=== PATIENT | female | born 1955 | race Caucasian/White ===

== ENCOUNTER → 2024-02-22 09:28 | Outpatient (REF) | payer MEDICARE, OTHER, SELFPAY ==
[2024-02-22 10:07] LABS: Hematocrit 40.9 % (37.0-47.0); Hemoglobin 13.4 g/dL (12.0-16.0); Mean Corp Hgb Conc. 32.8 g/dL (33.0-37.0); Mean Corpuscular Hgb 30.5 pg (27.0-31.0); Mean Platelet Volume 10.4 fL (7.4-10.4); Platelet Count 277 10^3/uL (130-400); Red Cell Dist. Width 13.2 % (11.5-14.5)
[2024-02-22 10:26] LABS: Blood Urea Nitrogen 25 mg/dl (7-17); Calcium 9.7 mg/dl (8.4-10.2); Carbon Dioxide 28 mmol/L (22-30); Chloride 103 mmol/L (98-107); Glucose 89 mg/dl (70-99); Potassium 4.5 mmol/L (3.5-5.1); Sodium 135 mmol/L (135-145); eGFR > 60.00
== END ==
LOC: SDSPAT 09:28
PROVIDERS: ATTENDING PHYSICIAN Obstetrics & Gynecology; FAMILY PHYSICIAN Family Medicine Adult Medicine; OTHER PHYSICIAN Internal Medicine Cardiovascular Disease
DX: Z01.818 Encounter for other preprocedural examination (principal)
CPT/HCPCS: 36415; 80048; 85027; 93005

== ENCOUNTER 2024-02-28 06:13 | Day surgery (SDC) | payer MEDICARE, OTHER, SELFPAY ==
[2024-02-22 09:45] VITALS: BMI 24.3
[2024-02-28] VITALS (13 sets, daily range): BP systolic 95–120; BP diastolic 54–93; BMI 24.3
[2024-02-28] MEDS: Pyridium 200 MG PO (06:52)
[2024-02-28] MEDS: NORMOSOL-R 1000 IV ×2 (07:06→08:49)
[2024-02-28] MEDS: TYLENOL 1000 MG PO (07:13)
[2024-02-28] MEDS: SUBLIMAZE 25 MCG IV ×2 (08:44→08:56)
[2024-02-28] MEDS: SUBLIMAZE 50 MCG IV (09:17)
[2024-02-28] MEDS: DILAUDID 0.5 MG IV (09:31)
[2024-02-28] MEDS: ROXICODONE 5 MG PO (11:31)
== END 2024-02-28 12:05 | disposition home or self-care (01) ==
LOC: SDS 06:13
PROVIDERS: ATTENDING PHYSICIAN Obstetrics & Gynecology; FAMILY PHYSICIAN Family Medicine Adult Medicine
DX: N39.3 Stress incontinence (female) (male) (principal); N36.41 Hypermobility of urethra
CPT/HCPCS: 57288; C1771

== ENCOUNTER → 2024-04-18 08:45 | Outpatient (REF) | payer MEDICARE, OTHER, SELFPAY | LOC: HWRAD 08:45 | PROVIDERS: ATTENDING PHYSICIAN Internal Medicine; FAMILY PHYSICIAN Family Medicine Adult Medicine | DX: M81.0 Age-related osteoporosis without current pathological fracture (principal) | CPT/HCPCS: 77080 ==

== ENCOUNTER 2024-05-02 11:59 | Emergency (ER) | payer MEDICARE, OTHER, SELFPAY ==
[2024-05-02 12:03] VITALS: BP 112/61
--- NOTE | 2024-05-02 12:29 | ED.GENMED ---
History of Present Illness
General
Chief Complaint: Fainting/Passed Out
Source: patient
Exam Limitations: none
Time Seen by Provider: 05/02/24 12:15
Nursing documentation reviewed up to this point in time: agreed with
Travel History
Have you had any contact with someone who has COVID-19?: No
Do you have any symptoms of coronavirus? Fever > 100 degrees, chills, cough, shortness of breath, sore throat, loss of taste or smell, muscle aches, or headache?: No
History of Present Illness
History of Present Illness:
This is a 68 y/o female with a pmh of hyperlipidemia, low blood pressure, anxiety, presenting emergency department today with concerns of light headedness, dizziness, near syncope while obtaining blood work this morning. Patient states that she was
going for routine fasting blood work this morning ordered by her primary care doctor when she started to feel dizzy and light headed and felt that she was going to syncopize. Her lab facility called [facility]. Patient states that she did not fall or hit
her head. Patient takes no blood thinners. Patient states that this always happens when she goes to get blood work. Patient expresses that she usually does well with blood work but if they start to have trouble finding a vein, she will get very
light headed and often syncopize with her fear of needles. Patient states that she feels now well now and her dizziness largely subsided but did become symptomatic again with IV placement here. Patient denies any changes to her vision, chest pain,
shortness of breath, lower extremity swelling, palpitations.
Past History
Past History
ED Past Medical History: Other
ED Past Surgical History: Appendectomy and Gynecological
Patient has exhibited threatening behavior?: No
Social History
Tobacco: Non-smoker
Alcohol: Occasional
Personal:
Living: with family
Review of Systems
Review of Systems
All Other Systems: ROS reviewed and negative except as documented in HPI and ROS
Phy Exam
Physical Exam
Physical Exam:
General: Patient is well appearing and in no acute distress; non-toxic
Skin: Warm and dry, no rashes or lesions
Head: Normocephalic, atraumatic
Eyes: Sclera non-icteric. EOMs intact. PERRLA.
Cardiac: Regular rate and rhythm, no murmurs.
Peripheral Vascular: No lower extremity swelling or edema.
Pulm: Normal respiratory effort, no wheezes, rales, or rhonchi
Abdomen: No abdominal tenderness to palpation
Neuro: CN II-XII intact, no focal neurologic deficits. Normal gait. Normal finger to nose, heel to gao testing.
Psychiatric: Appropriate mood and affect.
Course
Orders/Labs/Results
Orders:
Orders
05/02/24 12:06
ECG [Electrocardiogram (*1)] Urgent
Reason for Study: Syncope
EKG- Treatment ONCE
05/02/24 13:08
Bedside Glucose- Treatment ONCE
05/02/24 14:11
Orthostatic VS- Treatment ONCE
05/02/24 13:11
05/02/24 13:11
Vital Signs
Initial and Last Documented VS:
Initial Vital Signs
Temp Pulse Resp BP Pulse Ox
98.6 F 58 18 112/61 99
05/02/24 12:03 05/02/24 12:03 05/02/24 12:03 05/02/24 12:03 05/02/24 12:03
Last Documented Vital Signs
Temp Pulse Resp BP Pulse Ox
98.6 F 61 18 92/67 100
05/02/24 12:03 05/02/24 13:45 05/02/24 13:45 05/02/24 13:00 05/02/24 13:45
MDM/Problems Addressed
Differential Diagnosis Includes:
ddx include vasovagal syncope, cardiac dysrhythmia, hypoglycemia, electrolyte derangement, anemia
MDM/Problems Addressed:
Near Syncope:
This is a 68 y/o female with a pmh of hyperlipidemia, low blood pressure, anxiety, presenting emergency department today with concerns of light headedness, dizziness, near syncope while obtaining blood work this morning. Patient states that she was
going for routine fasting blood work this morning ordered by her primary care doctor when she started to feel dizzy and light headed and felt that she was going to syncopize. States that this is how she becomes every time she has to get blood work
due to her fear of needles. Patient also states that she has low brought blood pressure and a lower heart rate at baseline which will sometimes contribute to her symptoms. Here in the emergency, blood pressure on presentation was 112/61 and she
was given a liter of fluids. She also had a meal. This completely resolved her symptoms. I personally observed patient walk and patient has a steady gait. Her orthostatic vitals were negative and she did not feel any symptoms with standing and
sitting. EKG demonstrates normal sinus rhythm with no ischemic changes. Patient stable for discharge at this point to follow-up with her primary care provider.
Chronic conditions affecting care:
hyperlipidemia, urinary stress incontinence
Acute Exacerbation and/or Progression of Chronic Illness:
n/a
*Pulse Oximetry
Patient hypoxic: no
*Critical Care Note
Total Time (30-74mins, 75-104mins- exclusive of procedures): Not Applicable
Data Reviewed
Review of Other/Old Records Reveals: Records (reviewed ER physician documentation from 11/25/20) and Operative Reports (reviewed operative report from 02/28/24)
Source: patient
Further Testing Considered But Not Given:
considered CBC, CMP however patient states this is exactly how she gets with blood work every time, she has no history of anemia, and unable to obtain blood work from IV
Patient Management
Discussion with other providers: Other (Discussed this case with my attending Dr. Hawkins who is in agreement with plan)
Escalation/DeEscalation of care consider admission/obs:
Admission not indicated, patient's symptoms resolved and is requesting discharge.
ED Attending Note
-
Portions of this chart may have been created with voice recognition software.� Occasional wrong word or��sound alike� substitutions may have occurred due to the inherent limitations of voice recognition software.
Discharge Plan
Departure
Patient Disposition: Home (Routine Discharge)
Date of Disposition: 05/02/24
Time of Disposition: 14:17
Patient with high blood pressure during this ER visit?: Yes
Condition: Good
Discharge Problem:
Vasovagal near syncope
Instructions: Vasovagal Response (DC), BLOOD PRESSURE
Prescriptions:
No Action
venlafaxine [Effexor XR] 150 MG capsule,extended release 24hr
150 mg PO DAILY
multivitamin Tablet
1 tab PO DAILY
ezetimibe 10 mg Tablet
10 mg PO Q48H
Referrals:
Vinh Bhatia DO [Family Provider] -
Activity Restrictions/Additional Instructions:
Please continue to monitor your symptoms. Please follow-up with your primary care provider in a week for reassessment.
Please return to the emergency department should you experience chest pain, shortness of breath, further syncopal episodes, palpitations, confusion, difficulty speaking, difficulty ambulating, weakness in one-sided body, persistent headache,
intractable vomiting, or any other signs or symptoms concerning to you
Interventions
Interventions:
*Risk Screen - Suicide Last Done: 05/02/24 12:03
*General Assessment Last Done: 05/02/24 12:03
*Neglect/Abuse Screening Last Done: 05/02/24 12:03
ED- Fall Risk Assessment Last Done: 05/02/24 12:45
*Nursing Disposition Last Done: 05/02/24 14:20
ED- Cardiac Assessment Last Done: 05/02/24 12:45
ED- Neurological Assessment Last Done: 05/02/24 12:45
Discharge Date and Time
Discharge Date/Time: 05/02/24 15:23
Print Language: TURKISH
[2024-05-02 13:00] VITALS: BP 92/67
[2024-05-02 13:23] LABS: Glucose - Point of Care 92 mg/dl (70-99)
[2024-05-02 14:17] VITALS: BP 108/66; BP 112/75; BP 119/66; PULSE 71; PULSE 73; PULSE 74
== END 2024-05-02 15:23 | disposition home or self-care (01) ==
LOC: EMR 11:59
PROVIDERS: EMERGENCY PHYSICIAN Emergency Medicine; FAMILY PHYSICIAN Family Medicine Adult Medicine
DX: R55 Syncope and collapse (principal); R03.0 Elevated blood-pressure reading, without diagnosis of hypertension; E78.5 Hyperlipidemia, unspecified; F41.9 Anxiety disorder, unspecified; N39.3 Stress incontinence (female) (male); Z88.2 Allergy status to sulfonamides
CPT/HCPCS: 99283; 82962; 93005

== ENCOUNTER → 2024-05-30 10:02 | Outpatient (REF) | payer MEDICARE, OTHER, SELFPAY | LOC: HWRAD 10:02 | PROVIDERS: ATTENDING PHYSICIAN Physician Assistant; FAMILY PHYSICIAN Family Medicine Adult Medicine | DX: M25.562 Pain in left knee (principal) | CPT/HCPCS: 73562 ==

== ENCOUNTER → 2024-08-03 12:26 | Outpatient (REF) | payer MEDICARE, OTHER, SELFPAY ==
[2024-08-03 16:01] LABS: Blood Urea Nitrogen 24 mg/dl (7-17)
== END ==
LOC: HWLAB 12:26
PROVIDERS: ATTENDING PHYSICIAN Specialist; FAMILY PHYSICIAN Family Medicine Adult Medicine
DX: R10.33 Periumbilical pain (principal)
CPT/HCPCS: 36415; 82565; 84520

== ENCOUNTER → 2024-08-08 11:06 | Outpatient (REF) | payer MEDICARE, OTHER, SELFPAY | LOC: HWRAD 11:06 | PROVIDERS: ATTENDING PHYSICIAN Specialist; FAMILY PHYSICIAN Family Medicine Adult Medicine | DX: R10.33 Periumbilical pain (principal) | CPT/HCPCS: 74177; Q9967 ==

== ENCOUNTER → 2024-10-31 10:33 | Outpatient (REF) | payer MEDICARE, OTHER, SELFPAY ==
[2024-10-31 12:22] LABS: % Basophils 0.8 % (0-2); % Eosinophils 1.8 % (0-6); % Immature Granulocytes 0.2 % (0-0.5); % Lymphocytes 35.7 % (20.5-51.1); % Monocytes 3.8 % (1.7-9.3); % Neutrophils 57.7 % (42.2-75.2); Absolute Basophils 0.1 10^3/uL (0-0.2); Absolute Eosinophils 0.1 10^3/uL (0-0.7); Absolute Lymphocytes 2.3 10^3/uL (1.2-3.4); Absolute Monocytes 0.3 10^3/uL (0.1-0.6); Absolute Neutrophils 3.8 10^3/uL (1.4-6.5); Hematocrit 44.8 % (37.0-47.0); Hemoglobin 14.4 g/dL (12.0-16.0); Mean Corp Hgb Conc. 32.1 g/dL (33.0-37.0); Mean Corpuscular Hgb 31.2 pg (27.0-31.0); Mean Corpuscular Volume 97.2 fL (81.0-99.0); Mean Platelet Volume 11.1 fL (7.4-10.4); Nucleated Red Blood Cells % 0 %; Platelet Count 297 10^3/uL (130-400); Red Blood Cell Count 4.61 10^6/uL (4.20-5.40); Red Cell Dist. Width 13.1 % (11.5-14.5); White Blood Cell Count 6.6 10^3/uL (4.8-10.8)
[2024-10-31 12:50] LABS: ALT (SGPT) 21 U/L (0-35); AST (SGOT) 22 U/L (14-36); Albumin 4.9 g/dl (3.5-5.0); Alkaline Phosphatase 48 U/L (38-126); Blood Urea Nitrogen 26 mg/dl (7-17); Carbon Dioxide 29 mmol/L (22-30); Chloride 100 mmol/L (98-107); Glucose 87 mg/dl (70-99); HDL Cholesterol 101 mg/dl; LDL Cholesterol, Calculated 116 mg/dl; Potassium 4.7 mmol/L (3.5-5.1); Sodium 137 mmol/L (135-145); Total Bilirubin 0.4 mg/dl (0.2-1.3); Total Cholesterol 229 mg/dl (50-199); Total Protein 7.7 g/dl (6.3-8.2); Triglyceride 60 mg/dl (10-149); Very Low Density Lipoprotein 12 mg/dl (0-30); eGFR > 60.00
[2024-10-31 13:09] LABS: Free T4 1.07 ng/dl (0.78-2.19)
[2024-10-31 13:22] LABS: TSH 0.84 uIU/ml (0.47-4.68)
[2024-11-02 13:39] LABS: Total T3 (Sendout) 76 ng/dL (80-200)
== END ==
LOC: HWWDC 10:33
PROVIDERS: ATTENDING PHYSICIAN Physician Assistant Medical; FAMILY PHYSICIAN Family Medicine Adult Medicine
DX: Z12.31 Encounter for screening mammogram for malignant neoplasm of breast (principal); E78.2 Mixed hyperlipidemia; E55.9 Vitamin D deficiency, unspecified; F41.1 Generalized anxiety disorder; M81.0 Age-related osteoporosis without current pathological fracture
CPT/HCPCS: 36415; 77063; 77067; 80053; 80061; 82306; 84439; 84443; 84480; 85025